=== PATIENT | male | born 1965 | race Caucasian/White ===

== ENCOUNTER 2017-03-07 01:15 | Emergency (ER) | payer SELFPAY ==
[~2017-03-07] VITALS: Ht 182.9 cm; Wt 115.7 kg
[~2017-03-07 01:15] MED LIST: FLEXERIL10 MG; FLEXERIL10 MG PO; MEDROL DOSEPAK4 MG PO; NO MEDICATIONS; VOLTAREN75 MG PO
[2017-03-07] MEDS ORDERED: NO MEDICATIONS (01:26)
== END 2017-03-07 03:32 | disposition home or self-care (01) ==
LOC: SED 01:15
DX: F41.1 Generalized anxiety disorder (principal); F17.200 Nicotine dependence, unspecified, uncomplicated
CPT/HCPCS: 99283